=== PATIENT | male | born 1990 | race Caucasian/White ===

== ENCOUNTER 2020-09-14 08:23 | Observation (INO) ==
[2020-09-14] MEDS ORDERED: CeFAZolin Syr 2,000MG/20 ML 2,000 MG/20 ML SYRINGE IVPB ONE (08:40)
[2020-09-14] MEDS ORDERED: Dexamethasone 4 MG/ML VIAL ONE (08:58)
[2020-09-14] MEDS ORDERED: *HR* Rocuronium Bromide 50 MG/5 ML VIAL ONE (08:58)
[2020-09-14] MEDS ORDERED: Lidocaine HCL 4 ML Topical Solution (Laryng-O-Jet Kit Sterile Pak) TP ONE (08:58)
[2020-09-14] MEDS ORDERED: Lidocaine -MPF 2% 2 ML VIAL ONE (08:58)
[2020-09-14] MEDS ORDERED: *HR* Propofol 200 MG/20 ML VIAL IVP ONE (08:59)
[2020-09-14] MEDS ORDERED: *HR* Remifentanil 1 MG VIAL IVP ONE ×2 (08:59→12:53)
[2020-09-14] MEDS ORDERED: *HR* Midazolam HCl 2 MG/2 ML VIAL ONE (09:18)
[2020-09-14] MEDS ORDERED: *HR* FentaNYL (PF) 100 MCG/2 ML VIAL ONE ×2 (09:18→10:35)
[2020-09-14] MEDS ORDERED: *HR* OxyCODONE ER (12 HR) 10 MG TABLET PO ONE (09:29)
[2020-09-14] MEDS ORDERED: Celecoxib 200 MG CAPSULE PO SCH (09:30)
[2020-09-14] MEDS ORDERED: Gabapentin 300 MG CAPSULE PO ONE (09:31)
[2020-09-14] MEDS ORDERED: Ondansetron 4 MG/2 ML VIAL IVP PRN ×2 (09:36→15:22)
[2020-09-14] MEDS ORDERED: *HR* OxyCODONE Immed Rel 5 MG TABLET PO PRN (09:36)
[2020-09-14] MEDS: Ringers Solution, Lactated 1,000 ML IVC SCH ×2 (10:01→14:00)
[2020-09-14] MEDS ORDERED: Bacitracin 50,000 UNIT, Polymyxin B Sulfate 500,000 UNIT, Sodium Chloride IRRigation 1,... IR ONE (10:10)
[2020-09-14] MEDS ORDERED: *HR* HYDROMORPHONE 2 MG/ML VIAL ONE (12:28)
[2020-09-14] MEDS ORDERED: Ondansetron 4 MG/2 ML VIAL ONE (13:00)
[2020-09-14] MEDS ORDERED: *HR* Labetalol 20 MG/4 ML SYRINGE IVP ONE (13:03)
[2020-09-14] MEDS: *HR* HYDROmorphone PF 0.5 MG/0.5 ML SYRINGE IVP PRN ×4 (14:08→14:35)
[2020-09-14] MEDS ORDERED: Naloxone 0.4 MG/ML INJ IVP PRN (15:22)
[2020-09-14] MEDS ORDERED: Acetaminophen 325 MG TABLET PO PRN (15:22)
[2020-09-14] MEDS ORDERED: Ringers Solution, Lactated 1,000 ML IVC SCH (15:22)
[2020-09-14] MEDS: CeFAZolin 2 GM/120 ML BAG IVPB SCH ×2 (17:21→23:30)
[2020-09-14] MEDS: Gabapentin 400 MG CAPSULE PO SCH ×2 (17:21→23:29)
[2020-09-14] MEDS: *HR* HYDROcodone/Acet 5/325 mg TABLET PO PRN (19:56)
[2020-09-14] MEDS: *HR* OxyCODONE Immed Rel 5 MG TABLET PO PRN (23:40)
[2020-09-15] MEDS: hydrOXYzine pamoate 25 MG CAPSULE PO PRN (03:22)
[2020-09-15] MEDS: Gabapentin 400 MG CAPSULE PO SCH ×4 (04:49→20:15)
[2020-09-15] MEDS: *HR* HYDROcodone/Acet 5/325 mg TABLET PO PRN ×2 (08:29→17:25)
[2020-09-15] MEDS: tiZANidine 4 MG TABLET PO PRN ×2 (10:49→20:17)
[2020-09-15] MEDS: *HR* OxyCODONE Immed Rel 5 MG TABLET PO PRN (20:15)
[2020-09-16] MEDS: *HR* OxyCODONE Immed Rel 5 MG TABLET PO PRN ×2 (01:11→20:43)
[2020-09-16] MEDS: hydrOXYzine pamoate 25 MG CAPSULE PO PRN ×2 (01:13→20:44)
[2020-09-16 01:16] LABS: Basophils # 0.1 K/mcL (0.0-0.2); Basophils % 0.3 %; Eosinophils # 0.2 K/mcL (0.0-0.6); Eosinophils % 1.1 %; Hematocrit 40.9 % (37.5-50.1); Immature Granulocytes % 0.4 % (0-4); Lymphocytes # 4.8 K/mcL (0.6-4.6); Lymphocytes % 32.4 %; Mean Corpuscular HGB Conc 32.8 g/dL (31.6-35.5); Mean Corpuscular Volume 91.7 fL (83.0-100.0); Mean Platelet Volume 10.3 fL (9.4-12.4); Monocytes # 1.5 K/mcL (0.0-1.3); Monocytes % 10.1 %; Neutrophils # 8.2 K/mcL (1.6-8.9); Platelet Count 208 K/mcL (140-400); Red Blood Count 4.46 M/mcL (4.19-5.50); Red Cell Distribution Width 12.7 % (11.5-14.5); Segmented Neutrophils % 55.7 %; White Blood Count 14.7 K/mcL (4.3-11.1)
[2020-09-16 01:17] LABS: Hemoglobin 13.4 g/dL (12.9-16.9)
[2020-09-16 01:28] LABS: BUN/Creatinine Ratio 18 (6-26); Blood Urea Nitrogen 10 mg/dL (6-20); Calcium 8.8 mg/dL (8.6-10.3); Carbon Dioxide 28 mEq/L (23-29); Chloride 104 mEq/L (98-107); Glucose 98 mg/dL (70-105); Osmolality,Calculated 285 (280-300); Potassium 3.7 mEq/L (3.5-5.1); Sodium 138 mEq/L (136-145); eGFR For African Americans > 60 (> 60); eGFR For Non-African Americans > 60 (> 60)
[2020-09-16] MEDS: Gabapentin 400 MG CAPSULE PO SCH ×4 (04:55→20:44)
[2020-09-16] MEDS: *HR* HYDROcodone/Acet 5/325 mg TABLET PO PRN ×2 (06:37→12:53)
[2020-09-16] MEDS: diazePAM 5 MG TABLET PO PRN ×2 (08:44→15:47)
[2020-09-16] MEDS: tiZANidine 4 MG TABLET PO PRN ×2 (08:44→15:46)
[2020-09-17] MEDS: *HR* OxyCODONE Immed Rel 5 MG TABLET PO PRN (02:25)
[2020-09-17] MEDS: diazePAM 5 MG TABLET PO PRN (02:25)
[2020-09-17] MEDS: Gabapentin 400 MG CAPSULE PO SCH ×2 (02:25→09:24)
[2020-09-17 05:27] LABS: Basophils # 0.1 K/mcL (0.0-0.2); Basophils % 0.5 %; Eosinophils # 0.3 K/mcL (0.0-0.6); Eosinophils % 1.9 %; Hematocrit 40.7 % (37.5-50.1); Hemoglobin 13.5 g/dL (12.9-16.9); Immature Granulocytes % 0.6 % (0-4); Mean Corpuscular HGB Conc 33.2 g/dL (31.6-35.5); Mean Corpuscular Hemoglobin 29.3 pg (28.0-33.3); Mean Corpuscular Volume 88.5 fL (83.0-100.0); Monocytes # 1.7 K/mcL (0.0-1.3); Monocytes % 11.1 %; Neutrophils # 8.4 K/mcL (1.6-8.9); Platelet Count 211 K/mcL (140-400); Red Cell Distribution Width 12.1 % (11.5-14.5); Segmented Neutrophils % 53.9 %; White Blood Count 15.5 K/mcL (4.3-11.1)
[2020-09-17 05:28] VITALS: BP 113/72
[2020-09-17 05:45] LABS: BUN/Creatinine Ratio 18 (6-26); Blood Urea Nitrogen 11 mg/dL (6-20); Calcium 9.2 mg/dL (8.6-10.3); Carbon Dioxide 27 mEq/L (23-29); Chloride 101 mEq/L (98-107); Glucose 109 mg/dL (70-105); Osmolality,Calculated 282 (280-300); Potassium 3.8 mEq/L (3.5-5.1); Sodium 136 mEq/L (136-145); eGFR For African Americans > 60 (> 60); eGFR For Non-African Americans > 60 (> 60)
[2020-09-17] MEDS: *HR* HYDROcodone/Acet 5/325 mg TABLET PO PRN (06:21)
[2020-09-17] MEDS: tiZANidine 4 MG TABLET PO PRN (09:24)
== END 2020-09-17 11:02 | disposition home or self-care (01) ==
LOC: SAMDAY 08:23 → 3NENU 08:23
PROVIDERS: ADMIT Orthopaedic Surgery Orthopaedic Surgery of the Spine; ATTEND Orthopaedic Surgery Orthopaedic Surgery of the Spine